=== PATIENT | male | born 1960 | race Caucasian/White ===

== ENCOUNTER 2016-06-20 08:29 | Outpatient (CLI) | payer BC ==
--- NOTE | 2016-06-20 17:21 | RAD ---
LUMBAR SPINE 06/20/16 No fracture, dislocation, or disc space narrowing was seen. Small anterior osteophytes are seen at m any levels. Overall, the degenerative changes are not terribly severe. There might be some minor julieta rowing of the SI joints. A loop of proximal small bowel is nonspecifically mildly dilated. This may have no significance. IMPRESSION: Mild degenerative changes as noted. No disc space narrowing. POS: [facility]
--- NOTE | 2016-06-20 17:22 | RAD ---
LEFT HIP TWO VIEWS 06/20/16 No fracture or area of bony destruction was seen. There is some minor joint space narrowing and perh aps the beginning of some osteophytes, but they are very minimal. IMPRESSION: No acute findings. Very minor joint space narrowing. POS: [facility]
--- NOTE | 2016-06-20 17:23 | RAD ---
RIGHT HIP 06/20/16 Comparison is made with the left hip film. There is some mild joint space narrowing. The articular surface of the femoral head seems reasonably smooth. No fracture or area of bony destruction was seen. IMPRESSION: Mild joint space narrowing. POS: [facility]
== END 2016-06-20 08:30 | disposition home or self-care (01) ==
LOC: BURRAD 08:29
PROVIDERS: ATTEND Family Medicine
DX: M25.552 Pain in left hip (principal); M25.551 Pain in right hip; M54.5 Low back pain; M47.896 Other spondylosis, lumbar region
CPT/HCPCS: 72100

== ENCOUNTER 2017-10-30 09:28 | Outpatient (CLI) | payer BC ==
--- NOTE | 2017-10-30 10:41 | RAD ---
RIGHT SHOULDER 3 VIEWS: Date: 10/30/17 HISTORY: Shoulder pain. FINDINGS: There are prominent degenerative changes. Prominent spurring from the humeral head and narrowing of t he glenohumeral joint. Radiopaque anchors overlie the glenoid. AC joint is normally aligned. No acute fracture. IMPRESSION: Postoperative and degenerative changes of right shoulder noted. POS: [facility]
--- NOTE | 2017-10-30 10:45 | RAD ---
LEFT SHOULDER 4 VIEWS: Date: 10/30/17 HISTORY: Left shoulder pain. FINDINGS: Metallic screw transfixes the glenoid. Degenerative changes are present with spurring from the cachorro l head and glenoid. No fracture or dislocation. AC joint normally aligned. IMPRESSION: Moderate degenerative change at left shoulder with postoperative change as described. POS: [facility]
--- NOTE | 2017-10-30 11:15 | RAD ---
RIGHT HIP TWO VIEWS: HISTORY: Pain. COMPARISON: None. FINDINGS: Moderate to severe loss of joint space height. The contour of the femoral head is maintained. No fr acture. IMPRESSION: Moderate to severe degenerative change. POS: [facility]
--- NOTE | 2017-10-30 11:16 | RAD ---
LEFT HIP TWO VIEWS: HISTORY: Pain. COMPARISON: None. FINDINGS: Moderate degenerative changes in the joint space. The contour of the femoral head is maintained. No fracture. IMPRESSION: Moderate degenerative change. POS: [facility]
--- NOTE | 2017-10-30 11:18 | RAD ---
ONE VIEW PELVIS: HISTORY: Pain. COMPARISON: None. FINDINGS: The sacral alae are preserved. The bony pelvis is intact. Moderate to severe right and moderate lef t narrowing of the joint space. The contour of both femoral heads is maintained. No fracture. IMPRESSION: Right greater than left degenerative changes of the hip. POS: [facility]
== END 2017-10-30 09:29 | disposition home or self-care (01) ==
LOC: BURRAD 09:28
PROVIDERS: ATTEND Internal Medicine Rheumatology
DX: M25.511 Pain in right shoulder (principal); M25.551 Pain in right hip; M16.0 Bilateral primary osteoarthritis of hip; M19.011 Primary osteoarthritis, right shoulder; M19.012 Primary osteoarthritis, left shoulder; Z98.890 Other specified postprocedural states
CPT/HCPCS: 72170